=== PATIENT | female | born 1945 | race Caucasian/White ===

== ENCOUNTER 2020-06-04 06:50 | Day surgery (SDC) | payer MEDICARE, BC, SELFPAY ==
[2020-06-04 07:04] VITALS: BP 150/78; PULSE 81; RESP 22; TEMP 36.6; O2SAT 99
[2020-06-04] MEDS: Tetracaine 0.5% 4 ML BTL OD (08:21)
[2020-06-04] MEDS: Balanced Salt Soln.-PLUS 500 ML BAG (08:21)
[2020-06-04] MEDS: Lidocaine 1% Pres-Free 5 ML VIAL (08:22)
[2020-06-04] MEDS: Duovisc Viscoelastic System EACH 1 EACH (08:22)
[2020-06-04] MEDS: Lidocaine 2% Jelly 6 ML SYR (08:23)
[2020-06-04] MEDS: Povidone-Iodine Ophth 30 ML BTL (08:24)
--- NOTE | 2020-06-04 08:42 | W.PM.DSUDISC ---
Discharge Plan Disposition Patient Disposition: HOME Condition: Good Discharge Details Attending Provider: Melquiades Arroyo Primary Care Provider: Marilee Restrepo Home Meds and New Rx's Prescriptions: No Action ascorbic acid (vitamin C) [Vitamin C] 1,000 mg Tablet 1,000 mg PO DAILY RF: 0 cyanocobalamin (vitamin B-12) [Vitamin B-12] 1,000 mcg Tablet 1,000 mcg PO DAILY RF: 0 acetaminophen 650 mg Tablet 650 mg PO DAILY PRNRF: 0 levothyroxine [Synthroid] 75 mcg Tablet 75 mcg PO HS RF: 0 garlic 1,000 mg Capsule 1,000 mg PO DAILY RF: 0 calcium carbonate [Calcium 600] 600 mg calcium (1,500 mg) Tablet 600 mg PO DAILY RF: 0 methenamine hippurate 1 gram Tablet 1 g PO BID RF: 0 hydrocortisone [Proctocort] 1 % Cream 1 applic topical QID PRNRF: 0 Premarin 0.625 mg/gram Cream 0.625 mg vaginal DAILY RF: 0 omeprazole 20 mg Capsule,Delayed Release(Dr/Ec) 20 mg PO BID RF: 0 vitamin E [Vitamin E-400] 400 unit Capsule 400 cap PO DAILY RF: 0 hydrochlorothiazide 12.5 mg Tablet 12.5 mg PO DAILY RF: 0 cholecalciferol (vitamin D3) [Vitamin D3] 50 mcg (2,000 unit) Capsule 50 mcg PO DAILY RF: 0 omega 7-zyr-cyb-fish oil [Fish Oil] 1,200 (144-216) mg Capsule 2 cap PO DAILY RF: 0 Discharge Instructions Stand Alone Forms: Post-op Topical Cataract, Mic Iyer (DSU) Discharge Orders Discharge Orders: Discharge Order (Routine); Ordered 06/04/20 Ordered By: Melquiades Arroyo DS: Diagnosis Discharge Diagnosis (1) Posterior subcapsular age-related cataract, right eye: Status: Resolved (2) Cortical cataract of right eye: Status: Resolved (3) Nuclear sclerotic cataract of right eye: Status: Resolved
--- NOTE | 2020-06-04 08:43 | W.PM.OP ---
Date of service: 06/04/20 Time of Service: 08:43 Operative Note Operative Note DATE OF PROCEDURE: 06/04/20 PRE-OP DIAGNOSIS: Nuclear/cortical/posterior subcapsular cataract, right eye POST-OP DIAGNOSIS: same PROCEDURE: Cataract extraction using phacoemulsification with intraocular lens implant, right eye SURGEON: Melquiades Arroyo ANESTHESIA TYPE: Local By Surgeon and MAC Refer to Anesthesia Record ESTIMATED BLOOD LOSS: 0 PATHOLOGY: none sent COMPLICATIONS: None Patient was transported to: same day Patient's condition: stable Implants: Kenneth [employer] / [employer] Tecnis ZCB00 intraocular lens Indications: Progressive decreased vision due to cataract, right eye Procedure Description: CATARACT SURGERY OPERATIVE REPORT PREOPERATIVE DIAGNOSIS: Nuclear/cortical/posterior subcapsular cataract, right eye POSTOPERATIVE DIAGNOSIS: Same OPERATION: Cataract extraction using phacoemulsification with posterior chamber intraocular lens implant, right eye. IOL: IOL Oceanographer Geological/Model: J[employer]J Vision / CORTES Tecnis ZCB00 IOL Power: + 19.0 diopters IOL Serial Number: [id number] Optic Diameter: 6.0mm Haptic/Overall Diameter: 13.0mm PHACO INFO: [employer] Vision System with OZil and Active Fluidics Cumulative Dispersed Energy (CDE): 4.94 seconds SURGEON: Melquiades Arroyo MD, OUMAR ANESTHESIA: Monitored Anesthesia Care (MAC), with local sub-tenon's anesthetic infiltration COMPLICATIONS: None SPECIMENS: None INDICATIONS FOR PROCEDURE: The patient is a 74-year-old lady with history of progressive decreased vision in her right eyes secondary to the development of nuclear/cortical/posterior subcapsular cataract in the right eye. She is significantly symptomatic that she desired cataract surgery and attempt to improve and maximize her vision. PROCEDURE: The correct surgical eye was identified and marked as the right eye and the pupil was dilated in the preoperative area using mydriatics and cycloplegics. The dilated pupil size was 8.0 mm. She elected to proceed without oral sedation.. The patient was brought to the operating room where cardiopulmonary monitoring was instituted and surgical time-out was performed, confirming the correct operative eye and IOL power. Topical anesthesia was administered and ophthalmic povidone-iodine 5% was instilled into the conjunctival fornices. Lidocaine gel was applied to the cornea and the connor-ocular area was prepped with Betadine 10% solution and draped in the usual sterile fashion for intraocular surgery, including an aperture drape. A Tegaderm transparent film dressing was cut in half and used to cover the lashes and lid margins. Care was taken to sequester the lashes and lid margins under the Tegaderm dressing. A lid speculum was placed between the lids of the operative eye and the Talia-Kanika operating microscope was maneuvered into position. Marquez scissors were then used to make a conjunctival buttonhole approximately 6mm posterior to the limbus in the inferonasal quadrant. Blunt dissection was carried out to expose bare sclera, and a blunt-tipped sub-tenon?s anesthesia cannula was introduced and passed posteriorly along the globe where non-preserved plain lidocaine was injected into posterior sub-Tenon?s space. A sideport knife was used to make a paracentesis port inferiortemporally. Intraocular phenylephrine/lidocaine was injected into the anterior chamber. The anterior chamber was then filled with viscoelastic. A 2.4mm keratome knife was used to create a half-thickness groove at the limbus and then to construct a three-plane near-clear corneal tunnel extending 2.0mm into clear cornea in the superiortemporal position. . A flap was raised on the anterior capsule and capsulorhexis forceps were used to complete a continuous curvilinear capsulorhexis of 5.5 mm. Balanced salt solution was then used to perform cortical cleaving hydrodissection and nuclear hydrodelineation until the lens could be freely rotated within the capsular bag. The lens nucleus was then disassembled and removed within the capsular bag and iris plane using phacoemulsification. Residual cortical material was removed using the I/A handpiece. The posterior capsule was carefully polished to remove as much residual lens epithelial cells as safely possible. The capsular bag was then inflated and the anterior chamber deepened with viscoelastic. The lens implant described above was inserted into the capsular bag using the CORTES [place] Injector. A Kuglen hook was used to dial the IOL into position. Residual viscoelastic was then removed first from posterior to the IOL, then from the anterior chamber using the I/A handpiece. The lens implant was noted to center nicely within the capsular bag. The incisions were stromally hydrated, and the anterior chamber was reformed using BSS. Then 0.5cc of moxifloxacin 1.0mg/ml were injected into the capsular bag and anterior chamber. The incisions were checked with a Weck spear and found to be secure. Several drops of ophthalmic povidone-iodine 5% were then applied to the eye followed by two drops of Imprimis combination prednisolone/moxifloxacin/nepafenac solution. The drapes were removed and a clear plastic protective eye shield was placed over the eye. The patient was then returned to Same Day Surgery in stable condition.
== END 2020-06-04 09:10 | disposition home or self-care (01) ==
PROVIDERS: PCP Nurse Practitioner Family; Visit Provider Ophthalmology
PROC: (CPT 66984; principal; 2020-06-04 08:30)
DX: H25.041 Posterior subcapsular polar age-related cataract, right eye (principal); H25.011 Cortical age-related cataract, right eye; H25.11 Age-related nuclear cataract, right eye
CPT/HCPCS: 66984; V2632

== ENCOUNTER 2020-06-18 07:21 | Day surgery (SDC) | payer MEDICARE, BC, SELFPAY ==
--- NOTE | 2020-06-18 07:32 | W.ANESPRE ---
General Info Date of Service Date Performed: 06/18/20 Height: 5 ft 0.75 in Weight: 84 kg Body Mass Index (BMI): 35.2 Surgical Procedure: Operation Date: 06/18/20 09:40 Proposed Procedures Side Surgeon p Cataract Extraction with IOL Implant Left Melquiades Arroyo MD Meds Allergies and Home Medications Allergies Allergy/AdvReac Type Severity Reaction Status Date / Time erythromycin base Allergy Mild FEVER/RASH Unverified 06/18/20 07:43 estrogens, conjugated Allergy Mild per note Unverified 06/18/20 07:43 [From Premarin] question pancreatitis magnesium Allergy Mild Hives Unverified 06/18/20 07:43 codeine AdvReac Mild Nausea Unverified 06/18/20 07:43 diclofenac AdvReac Mild GI UPSET Unverified 06/18/20 07:43 lisinopril AdvReac Mild Lightheadedness-pt Unverified 06/18/20 07:43 states not sure if she's allergic nitrofurantoin AdvReac Mild paresthesia Unverified 06/18/20 07:43 [From Macrobid] in legs nizatidine [From Axid] AdvReac Mild abdominal Unverified 06/18/20 07:43 pain propoxyphene [From Darvon] AdvReac Mild Nausea Unverified 06/18/20 07:43 sulfamethoxazole AdvReac Mild Nausea Unverified 06/18/20 07:43 [From Bactrim] trimethoprim [From Bactrim] AdvReac Mild Nausea Unverified 06/18/20 07:43 Home Medication Medication Instructions Recorded acetaminophen 650 mg PO DAILY PRN 05/31/20 ascorbic acid (vitamin C) [Vitamin 1,000 mg PO DAILY 05/31/20 C] calcium carbonate [Calcium 600] 600 mg PO DAILY 05/31/20 cholecalciferol (vitamin D3) 50 mcg PO DAILY 05/31/20 [Vitamin D3] conjugated estrogens [Premarin] 0.625 mg VAGINAL DAILY 05/31/20 cyanocobalamin (vitamin B-12) 1,000 mcg PO DAILY 05/31/20 [Vitamin B-12] garlic 1,000 mg PO DAILY 05/31/20 hydrochlorothiazide 12.5 mg PO DAILY 05/31/20 hydrocortisone [Proctocort] 1 applic TOPICAL QID PRN 05/31/20 levothyroxine [Synthroid] 75 mcg PO HS 05/31/20 methenamine hippurate 1 g PO BID 05/31/20 omega 8-his-lsx-fish oil [Fish Oil] 2 cap PO DAILY 05/31/20 omeprazole 20 mg PO BID 05/31/20 vitamin E [Vitamin E-400] 400 cap PO DAILY 05/31/20 Current Visit Medications: Current Medications Generic Name Dose Route Start Last Admin Trade Name Tracy PRN Reason Stop Dose Admin Acetaminophen 1,000 mg 06/18/20 06:00 Acetaminophen 500 Mg Tab PO Q4H PRN PRN Miscellaneous Medication 0 ml 06/18/20 06:00 Prednisolone 1%, Moxifloxacin 0.5%, Nepafenac 0.1% 5ml Btl OS DIRECTED [facility] Miscellaneous Medication 0 ml 06/18/20 06:00 Tropicam./Phenyleph. (1/2.5%) 10 Ml Btl OS DIRECTED [facility] Tetracaine HCl 0 ml 06/18/20 06:00 Tetracaine 0.5% 4 Ml Btl OS DIRECTED [facility] PFSH Active Problems Active Problems: Problem Status Onset Code Nuclear sclerotic cataract of left eye H25.12 Cortical cataract of left eye H26.9 Posterior subcapsular age-related cataract of left eye H25.042 Posterior subcapsular age-related cataract, right eye H25.041 Cortical cataract of right eye H26.9 Nuclear sclerotic cataract of right eye H25.11 Medical History Medical History Arthritis Backache Caregiver role strain Cystocele Dyslipidemia GERD (gastroesophageal reflux disease) Hiatal hernia Hypertension Hypomagnesemia Hypothyroidism Neuroma of foot Pain in right foot Pancreatitis Plantar fasciitis Skin lesion Trochanteric bursitis of right hip Urine retention Vitamin D deficiency Surgical History Surgical History (Updated 06/18/20 @ 07:42 by Lynn Schaeffer) H/O cystopexy H/O excision of ganglion cyst History of appendectomy History of breast surgery History of hernia repair History of hysterectomy History of orthopedic surgery right shoulder per H&P note Hx of cataract surgery Hx of cholecystectomy Tobacco Smoking/Tobacco Use Status: Former Tobacco Use Alcohol Alcohol Intake: never Substance Use Substance use: Never Substance use type: does not use Vital Signs and Lab Results Lab Results Blood Type / Crossmatch: No Data to Display Complete Blood Count: No Data to Display Complete Metabolic Panel: No Data to Display Liver Function Panel: No Data to Display Coagulation Panel: No Data to Display Cardiac Panel: No Data to Display Arterial Blood Gas: No Data to Display Venous Blood Gas: No Data to Display Pancreas Panel: No Data to Display Thyroid Panel: No Data to Display Infectious Disease: No Data to Display Blood Cultures: No Data to Display Toxicology Panel: No Data to Display Panel: No Data to Display Anesthesia Assessment and Plan Anesthesia History Personal History: No History of Anesthesia Complications Family History: No Family History of Anesthesia Complications Exercise Tolerance Exercise Tolerance: Metabolic Equivalents>4 Pertinent Negatives Pertinent Negatives: No Symptoms of GERD Cardiac & Pulmonary Exam Cardiac Exam: Normal S1/S2 Heart Sounds Pulmonary Exam: Clear Bilateral Breath Sounds Airway Exam Known Difficult Airway: No Mallampati Class: 2 Mouth Opening: Normal (> 3cm) Thyromental Distance: Greater than 3 cm Neck Range of Motion: Full ROM Neck Circumference: Normal Teeth Condition: Normal Dentition ASA Classification ASA Score: ASA 2 ASA Emergency: No NPO Status NPO Status: NPO Clears >2 hours, Solids >8 hours Anesthesia Plan Anesthesia Technique: MAC Anesthesia Airway Planned: Natural Airway Monitors Used: Standard Monitors Preoperative Comments:: previous cat with no MKO would like to do that same.
--- NOTE | 2020-06-18 07:44 | W.ANESPOSTOP ---
Postoperative Evaluation Date, Time and Location Date Performed: 06/18/20 Time Performed: 09:50 Patient Location: Day Surgery Unit Vital Signs Most Recent Imported Vital Signs: Temp Pulse Resp BP Pulse Ox 36.1 C L 88 16 144/80 H 100 06/18/20 07:48 06/18/20 07:48 06/18/20 07:48 06/18/20 07:48 06/18/20 07:48 Most Recent Manually Entered Vital Signs: Adult Blood Pressure: 137/81 Heart Rate: 71 Respirations: 16 Oxygen Saturation (%): 99 Temperature (C): 36.6 C Pain Score (0-10 Scale): 0 Assessment Mental Status: Awake (Alert & Oriented to Patient Baseline) Airway and Respiratory Function: Patent airway with normal (patient baseline) respiratory exam Cardiovascular Function: Hemodynamically Stable Hydration Status: Adequately Hydrated Nausea & Vomiting: No Nausea or Vomiting Pain: Pt. Denies Any Pain Peripheral Nerve Block: Patient did not receive a nerve block
[2020-06-18 07:48] VITALS: BP 144/80; PULSE 88; RESP 16; TEMP 36.1; O2SAT 100
[2020-06-18 08:14] VITALS: BMI 35.2
[2020-06-18] MEDS: Duovisc Viscoelastic System EACH 1 EACH (09:04)
[2020-06-18] MEDS: Povidone-Iodine Ophth 30 ML BTL (09:05)
[2020-06-18] MEDS: Lidocaine 2% Jelly 6 ML SYR (09:06)
[2020-06-18] MEDS: Balanced Salt Soln.-PLUS 500 ML BAG (09:06)
[2020-06-18] MEDS: Lidocaine 1% Pres-Free 5 ML VIAL (09:08)
[2020-06-18] MEDS: Tetracaine 0.5% 4 ML BTL OS (09:09)
--- NOTE | 2020-06-18 09:24 | W.PM.DSUDISC ---
Discharge Plan Disposition Patient Disposition: HOME Condition: Good Discharge Details Attending Provider: Melquiades Arroyo Primary Care Provider: Marilee Restrepo Home Meds and New Rx's Prescriptions: No Action ascorbic acid (vitamin C) [Vitamin C] 1,000 mg Tablet 1,000 mg PO DAILY RF: 0 cyanocobalamin (vitamin B-12) [Vitamin B-12] 1,000 mcg Tablet 1,000 mcg PO DAILY RF: 0 acetaminophen 650 mg Tablet 650 mg PO DAILY PRNRF: 0 levothyroxine [Synthroid] 75 mcg Tablet 75 mcg PO HS RF: 0 garlic 1,000 mg Capsule 1,000 mg PO DAILY RF: 0 calcium carbonate [Calcium 600] 600 mg calcium (1,500 mg) Tablet 600 mg PO DAILY RF: 0 methenamine hippurate 1 gram Tablet 1 g PO BID RF: 0 hydrocortisone [Proctocort] 1 % Cream 1 applic topical QID PRNRF: 0 Premarin 0.625 mg/gram Cream 0.625 mg vaginal DAILY RF: 0 omeprazole 20 mg Capsule,Delayed Release(Dr/Ec) 20 mg PO BID RF: 0 vitamin E [Vitamin E-400] 400 unit Capsule 400 cap PO DAILY RF: 0 hydrochlorothiazide 12.5 mg Tablet 12.5 mg PO DAILY RF: 0 cholecalciferol (vitamin D3) [Vitamin D3] 50 mcg (2,000 unit) Capsule 50 mcg PO DAILY RF: 0 omega 5-udy-qwr-fish oil [Fish Oil] 1,200 (144-216) mg Capsule 2 cap PO DAILY RF: 0 Discharge Instructions Stand Alone Forms: Post-op Block Cataract, Post-op Topical Cataract, Mic Iyer (DSU) Discharge Orders Discharge Orders: Discharge Order (Routine); Ordered 06/18/20 Ordered By: Melquiades Arroyo DS: Diagnosis Discharge Diagnosis (1) Posterior subcapsular age-related cataract of left eye: Status: Resolved (2) Cortical cataract of left eye: Status: Resolved (3) Nuclear sclerotic cataract of left eye: Status: Resolved
--- NOTE | 2020-06-18 09:25 | W.PM.OP ---
Date of service: 06/18/20 Time of Service: 09:25 Operative Note Operative Note DATE OF PROCEDURE: 06/18/20 PRE-OP DIAGNOSIS: Nuclear/cortical/posterior subcapsular cataract, left eye POST-OP DIAGNOSIS: same PROCEDURE: Cataract extraction using phacoemulsification with intraocular lens implant, left eye SURGEON: Melquiades Arroyo ANESTHESIA TYPE: Local By Surgeon and MAC Refer to Anesthesia Record PATHOLOGY: none sent COMPLICATIONS: None Patient was transported to: same day Patient's condition: stable Implants: Kenneth and [employer] Vision / [employer] Tecnis ZCB00 Indications: Progressive decreased vision due to cataract, left eye Procedure Description: CATARACT SURGERY OPERATIVE REPORT PREOPERATIVE DIAGNOSIS: Nuclear/cortical/posterior subcapsular cataract, left eye POSTOPERATIVE DIAGNOSIS: Same OPERATION: Cataract extraction using phacoemulsification with posterior chamber intraocular lens implant, left eye. IOL: IOL Product Management Manager/Model: [employer]J Vision / CORTES Tecnis ZCB00 IOL Power: + 19.0 diopters IOL Serial Number: [id number] Optic Diameter: 6.0mm Haptic/Overall Diameter: 13.0mm PHACO INFO: [employer]ion Vision System with OZil and Active Fluidics Cumulative Dispersed Energy (CDE): 8.06 seconds SURGEON: Melquiades Arroyo MD, OUMAR ANESTHESIA: Monitored Anesthesia Care (MAC), with local sub-tenon's anesthetic infiltration COMPLICATIONS: None SPECIMENS: None INDICATIONS FOR PROCEDURE: The patient is a 74-year-old lady with history of diminished visual acuity in both eyes secondary to development of significant bilateral cataracts. She has already undergone cataract surgery in the right eye and is doing well postoperatively. She now presents for cataract surgery in the left eye. PROCEDURE: The correct surgical eye was identified and marked as the left eye and the pupil was dilated in the preoperative area using mydriatics and cycloplegics. The dilated pupil size was 7.0 mm. She elected to proceed without oral sedation. The patient was brought to the operating room where cardiopulmonary monitoring was instituted and surgical time-out was performed, confirming the correct operative eye and IOL power. Topical anesthesia was administered and ophthalmic povidone-iodine 5% was instilled into the conjunctival fornices. Lidocaine gel was applied to the cornea and the connor-ocular area was prepped with Betadine 10% solution and draped in the usual sterile fashion for intraocular surgery, including an aperture drape. A Tegaderm transparent film dressing was cut in half and used to cover the lashes and lid margins. Care was taken to sequester the lashes and lid margins under the Tegaderm dressing. A lid speculum was placed between the lids of the operative eye and the Talia-Kanika operating microscope was maneuvered into position. Marquez scissors were then used to make a conjunctival buttonhole approximately 6mm posterior to the limbus in the inferonasal quadrant. Blunt dissection was carried out to expose bare sclera, and a blunt-tipped sub-tenon?s anesthesia cannula was introduced and passed posteriorly along the globe where non-preserved plain lidocaine was injected into posterior sub-Tenon?s space. A sideport knife was used to make a paracentesis port superior/superiortemporally. Intraocular phenylephrine/lidocaine was injected into the anterior chamber. The anterior chamber was then filled with viscoelastic. A 2.4mm keratome knife was used to create a half-thickness groove at the limbus and then to construct a three-plane near-clear corneal tunnel extending 2.0mm into clear cornea in the temporal position. . A flap was raised on the anterior capsule and capsulorhexis forceps were used to complete a continuous curvilinear capsulorhexis of 5.5 mm. Balanced salt solution was then used to perform cortical cleaving hydrodissection and nuclear hydrodelineation until the lens could be freely rotated within the capsular bag. The lens nucleus was then disassembled and removed within the capsular bag and iris plane using phacoemulsification. Residual cortical material was removed using the 45-degree angled silicone I/A tip with 0.3mm port. The posterior capsule was carefully polished to remove as much residual lens epithelial cells as safely possible. The capsular bag was then inflated and the anterior chamber deepened with viscoelastic. The lens implant described above was inserted into the capsular bag using the CORTES [place] Injector. A Kuglen hook was used to dial the IOL into position. Residual viscoelastic was then removed first from posterior to the IOL, then from the anterior chamber using the I/A handpiece. The lens implant was noted to center nicely within the capsular bag. The incisions were stromally hydrated, and the anterior chamber was reformed using BSS. Then 0.5cc of moxifloxacin 1.0mg/ml were injected into the capsular bag and anterior chamber. The incisions were checked with a Weck spear and found to be secure. Several drops of ophthalmic povidone-iodine 5% were then applied to the eye followed by two drops of Imprimis combination prednisolone/moxifloxacin/nepafenac solution. The drapes were removed and a clear plastic protective eye shield was placed over the eye. The patient was then returned to Same Day Surgery in stable condition.
[2020-06-18 09:53] VITALS: BP 137/81; PULSE 71; RESP 16; TEMPC 36.6; O2SAT 99
== END 2020-06-18 09:45 | disposition home or self-care (01) ==
PROVIDERS: PCP Nurse Practitioner Family; Visit Provider Ophthalmology
PROC: (CPT 66984; principal; 2020-06-18 09:30)
DX: H25.042 Posterior subcapsular polar age-related cataract, left eye (principal); H25.012 Cortical age-related cataract, left eye; H25.12 Age-related nuclear cataract, left eye; Z98.41 Cataract extraction status, right eye; Z96.1 Presence of intraocular lens
CPT/HCPCS: 66984; V2632

== ENCOUNTER 2024-06-20 03:07 | Outpatient (CLI) | payer MEDICARE, SELFPAY ==
[2024-06-20 11:03] LABS: Abs Immature Grans 0.02 10^3/uL (0.0-0.06); Absolute Basophil Count 0.03 10^3/uL (0.0-0.2); Absolute Eosinophil Count 0.02 10^3/uL (0.0-0.7); Absolute Lymphocyte Count 0.61 10^3/uL (1.2-3.4); Absolute Monocyte Count 0.72 10^3/uL (0.1-0.8); Absolute Neutrophil Count 4.63 10^3/uL (1.2-6.7); Basophils % 0.5 %; Eosinophils % 0.3 %; HCT 38.6 % (36.0-46.0); Immature Grans % 0.3 %; Lymphocytes % 10.1 %; MCH 33.2 pg (27.0-33.0); MCHC 33.7 % (32.0-36.0); MCV 99 fL (80-95); MPV 8.6 fL (8.0-11.0); Monocytes % 11.9 %; Neutrophils % 76.9 %; Platelet Count 180 10^3/uL (130-400); RBC 3.92 10^6/uL (3.93-5.22); RDW 13.8 % (11.7-14.6); RDW-SD 49.3 fL; WBC 6.03 10^3/uL (4.4-10.8)
[2024-06-20 11:21] LABS: ALT 15 U/L (14-59); AST 21 U/L (15-37); Albumin 3.1 g/dL (3.4-5.0); Alkaline Phosphatase 72 U/L (46-116); Anion Gap 10.3 mmol/L (3-11); BUN 11 mg/dL (7-18); Bilirubin, Total 0.7 mg/dL (0.2-1.0); CO2 26.7 mmol/L (21.0-32.0); CREATININE 0.6 mg/dL (0.55-1.02); Chloride 101 mmol/L (98-107); Estimated GFR 91.82 (mL/min/1.73m2); Glucose 101 mg/dL (74-106); Potassium 3.6 mmol/L (3.5-5.1); Sodium 138 mmol/L (136-145); Total Protein 6.4 g/dL (6.4-8.2)
== END 2024-06-20 03:08 | disposition home or self-care (01) ==
LOC: LBO 03:08
PROVIDERS: PCP Nurse Practitioner Family; Visit Provider Nurse Practitioner
DX: C09.9 Malignant neoplasm of tonsil, unspecified (principal)
CPT/HCPCS: 36415; 80053; 85025